=== PATIENT | female | born 1935 | race Caucasian/White ===

== ENCOUNTER 2021-05-23 11:46 | Emergency (ER) | payer OTHER ==
[2021-05-23] MEDS ORDERED: Sodium Chloride 0.9% 10 ML Syringe FLUSH PRN (12:25)
--- NOTE | 2021-05-23 12:32 | EDM.PDOC ---
ED HPI GENERAL MEDICAL PROBLEM - General Chief Complaint: Back Pain or Injury Stated Complaint: BACK PAIN AND ELEVATED LABS Time Seen by Provider: 05/23/21 12:11 Source of Information: Reports: RN ([facility] nurse at the bedside; patient does have a significant history of dementia) History Limitations: Reports: No Limitations - History of Present Illness INITIAL COMMENTS - FREE TEXT/NARRATIVE: 85-year-old female brought in by [facility] nurse as directed to be sent here by [facility] physician. Patient does have a history of chronic low back pain and this is being managed by her physician. As she has had x-rays and scans and is being trialed on different oral pain medications. Patient did have lab work completed yesterday and it did show an elevated lipase, C-reactive protein level and a ESR. Patient also was started on Macrobid for UTI yesterday. Patient really does not have any complaints and is not really verbal due to advanced dementia however she does grown slightly when changing positions from lying to sitting to standing. Paced physician is recommending the patient have a CT of the abdomen and pelvis to rule out pancreatitis. Treatments GEOSPATIAL PROGRAM MANAGEMENT OFFICER: Reports: Other (see below) Other Treatments GEOSPATIAL PROGRAM MANAGEMENT OFFICER: tramadol Lower Back Pain Score (Numeric/FACES): 8 - Related Data Allergies Allergy/AdvReac Type Severity Reaction Status Date / Time Tetanus Vaccines and Toxoid Allergy Severe Swelling Verified 05/23/21 13:16 atorvastatin [From Lipitor] Allergy Other Verified 05/23/21 13:16 fluvastatin Allergy Other Verified 05/23/21 13:16 lisinopril Allergy Other Verified 05/23/21 13:16 rosuvastatin Allergy Other Verified 05/23/21 13:16 valdecoxib [From Bextra] Allergy Other Verified 05/23/21 13:16 Social & Family History - Tobacco Use Tobacco Use Status *Q: Never Tobacco User Second Hand Smoke Exposure: No - Caffeine Use Caffeine Use: Reports: Coffee - Recreational Drug Use Recreational Drug Use: No ED ROS GENERAL - Review of Systems Review Of Systems: Comprehensive ROS is negative, except as noted in HPI. ED EXAM, GI/ABD - Physical Exam Exam: See Below Exam Limited By: No Limitations General Appearance: Alert, WD/WN, No Apparent Distress Ears: Normal External Exam, Hearing Grossly Normal Nose: Normal Inspection Throat/Mouth: Normal Inspection, Normal Lips, Normal Voice, No Airway Compromise Head: Atraumatic Neck: Normal Inspection, Supple, Non-Tender, Full Range of Motion Respiratory/Chest: No Respiratory Distress, Lungs Clear, Normal Breath Sounds, No Accessory Muscle Use, Chest Non-Tender Cardiovascular: Normal Peripheral Pulses, Regular Rate, Rhythm, No Edema, No Murmur GI/Abdominal Exam: Normal Bowel Sounds, Soft, No Distention, Tender (Left lower quadrant). No: Non-Tender (Female) Exam: Deferred Rectal (Female) Exam: Deferred Back Exam: Normal Inspection, Full Range of Motion. No: Paraspinal Tenderness, Vertebral Tenderness Extremities: Normal Inspection, Normal Range of Motion, Non-Tender, No Pedal Edema, Normal Capillary Refill Neurological: Alert. No: Oriented (Unable to assess orientation as patient is nonverbal and staff that accompanies the patient states that she does have fairly advanced dementia.) Psychiatric: Normal Affect, Normal Mood Skin Exam: Warm, Dry, Intact, Normal Color, No Rash Lymphatic: No Adenopathy Course - Vital Signs Text/Narrative:: As stated above, patient here with [facility] staff to be further evaluated for elevated lipase, CRP and ESR. Physician is concerned that she may have pancreatitis. Patient is really nonverbal during my assessment and assessment is essentially unremarkable. She is hemodynamically stable. Abdomen was assessed and she does have some groaning noted when palpation of the left lower quadrant. Back was assessed and she does have some tenderness noted to the right buttock area with palpation. I was not able to elicit any painful response on spinal or paraspinal palpation or assessment. Will obtain labs to include a CBC, CMP, magnesium level, C-reactive protein, lipase and amylase. Once I have those labs back we will likely order a CT of the abdomen pelvis. - Orders/Labs/Meds Orders: Active Orders 24 hr Category Date Time Status Abdomen Pelvis w Cont [CT] Stat Exams 05/23/21 13:51 Taken Sodium Chloride 0.9% [Saline Flush] Med 05/23/21 12:25 Active 10 ml FLUSH ASDIRECTED PRN Saline Lock Insert [OM.PC] Stat Oth 05/23/21 12:25 Ordered Medication Orders Sodium Chloride (Sodium Chloride 0.9% 10 Ml Syringe) 10 ml FLUSH ASDIRECTED PRN PRN Reason: Keep Vein Open Last Admin: 05/23/21 13:10 Dose: 10 ml Documented by: [id number] Labs: Laboratory Tests 05/23/21 05/23/21 05/23/21 Range/Units 12:56 12:56 12:56 WBC 7.87 (3.98-10.04) K/mm3 RBC 4.14 (3.98-5.22) M/mm3 Hgb 10.9 L (11.2-15.7) gm/dl Hct 35.5 (34.1-44.9) % MCV 85.7 (79.4-94.8) fl MCH 26.3 (25.6-32.2) pg MCHC 30.7 L (32.2-35.5) g/dl RDW Std Deviation 49.5 H (36.4-46.3) fL Plt Count 277 (182-369) K/mm3 MPV 11.0 (9.4-12.3) fl Neut % (Auto) 62.9 (34.0-71.1) % Lymph % (Auto) 19.6 (19.3-51.7) % Hoke % (Auto) 10.2 (4.7-12.5) % Eos % (Auto) 6.6 H (0.7-5.8) Baso % (Auto) 0.6 (0.1-1.2) % Neut # (Auto) 4.95 (1.56-6.13) K/mm3 Lymph # (Auto) 1.54 (1.18-3.74) K/mm3 Hoke # (Auto) 0.80 H (0.24-0.36) K/mm3 Eos # (Auto) 0.52 H (0.04-0.36) K/mm3 Baso # (Auto) 0.05 (0.01-0.08) K/mm3 Sodium 138 (136-145) mEq/L Potassium 3.8 (3.5-5.1) mEq/L Chloride 103 (98-107) mEq/L Carbon Dioxide 24 (21-32) mEq/L Anion Gap 14.8 (5-15) BUN 22 H (7-18) mg/dL Creatinine 1.1 H (0.55-1.02) mg/dL Est Cr Clr Drug Dosing 42.55 mL/min Estimated GFR (MDRD) 47 (>60) mL/min BUN/Creatinine Ratio 20.0 H (14-18) Glucose 155 H (70-99) mg/dL Calcium 9.4 (8.5-10.1) mg/dL Magnesium 1.7 L (1.8-2.4) mg/dL Total Bilirubin 0.9 (0.2-1.0) mg/dL AST 17 (15-37) U/L ALT 22 (14-59) U/L Alkaline Phosphatase 150 H (46-116) U/L C-Reactive Protein 14.0 H* (<1.0) mg/dL Total Protein 6.9 (6.4-8.2) g/dl Albumin 3.3 L (3.4-5.0) g/dl Globulin 3.6 gm/dL Albumin/Globulin Ratio 0.9 L (1-2) Amylase 40 (25-115) U/L Lipase 268 (73-393) U/L Meds: Medications Generic Name Dose Route Start Last Admin Trade Name Freq PRN Reason Stop Dose Admin Sodium Chloride 10 ml 05/23/21 12:25 05/23/21 13:10 Sodium Chloride 0.9% 10 Ml Syringe FLUSH 10 ml ASDIRECTED PRN Administration Keep Vein Open - Re-Assessments/Exams Free Text/Narrative Re-Assessment/Exam: 05/23/21 13:53 Hematology reveals a WBC of 7.87, hemoglobin 10.9, hematocrit 35.5, platelet count 277,000 Chemistry reveals a sodium of 138, potassium 3.8, chloride 103, carbon dioxide 24, anion gap 14.8, BUN 22, creatinine 1.1, glucose 155, magnesium 1.7, total bilirubin 0.9, AST 17, ALT 22, alk phos 150, C-reactive protein 14.0, amylase 40, lipase [address] of the abdomen and pelvis to further evaluate left lower q uadrant abdominal pain with associated elevation of C-reactive protein. 05/23/21 16:[address] of the abdomen and pelvis: Lungs show groundglass opacities at the left lung base appear to be platelike suggestive of atelectasis. Clinical correlation to exclude acute multifocal pneumonitis is suggested. Liver examination of the liver demonstrates a lobular surface contour, and enlargement of the left and caudate lobes, findings consistent with cirrhosis. Multiple simple appearing hepatic cysts demonstrate measuring up to 1.7 cm in the right lobe adjacent to the gallbladder. Gallbladder and bile ducts: There are gallbladder is present. No evidence of cholecystitis demonstrated. Pancreas: Mild peripancreatic fluid extending into the left anterior pararenal space. Clinical correlation to exclude mild pancreatitis is suggested. Spleen: Normal. No splenomegaly. Adrenal glands: Normal. No mass. Kidneys and ureters: Normal. No hydronephrosis. Stomach and bowel: Mild diverticulosis is present in the left colon. No diverticulitis. Appendix: No evidence of appendicitis. Intraperitoneal space: Unremarkable. No free air. No significant fluid c ollection. Vasculature: The aorto iliac vessels demonstrate mild atherosclerotic calcification. Lymph nodes: Right pericardiac lymph node measures 9 mm. Urinary bladder: Unremarkable as visualized. Reproductive: Unremarkable as visualized Bones/joints: The spine demonstrates moderate degenerative changes. Severe central spinal stenosis L1-L2, L2-L3, L3-L4 with moderate central spinal steno sis L4-L5. Bilateral facet joint arthroplasty L5-S1. Soft tissues: There is a small umbilical hernia. There is no evidence of incarceration. Impression: 1. Groundglass opacities at the left lung base appear to be platelike suggestive of atelectasis. Clinical correlation to exclude acute multifocal pneumonitis suggested. 2. Examination of the liver demonstrates a lobular surface contour, and enlargement of the left and caudate lobes, findings consistent with cirrhosis. Multiple simple appearing hepatic cyst demonstrated measuring up to 1.7 cm in the right lobe adjacent to the gallbladder. 3. There are gallstones present. No evidence of cholecystitis demonstrated. 4. Mild peripancreatic fluid extending into the left anterior pararenal space. Clinical correlation to exclude mild pancreatitis is suggested. 5. Mild diverticulosis is present in the left colon. No diverticulitis. Departure - Departure Time of Disposition: 17:36 Disposition: Home, Self-Care 01 Condition: Good Clinical Impression: Abdominal pain Qualifiers: Abdominal location: left lower quadrant Qualified Code(s): R10.32 - Left lower quadrant pain - Discharge Information Instructions: Abdominal Pain, Adult, [id number] Referrals: Andres Chamorro DO [Primary Care Provider] - Forms: ED Department Discharge Additional Instructions: You were seen in the emergency department today for follow-up regarding labs that were completed yesterday by her primary care provider. Labs were completed which were essentially unremarkable however C-reactive protein, which is an inflammatory marker was elevated. Liver enzymes were completely normal. CT scan of the abdomen was completed which did show possibly mild pancreatitis however again lipase and amylase were not elevated. She may have had pancreatitis which is now resolving. Recommend clear liquids for the next 48 hours and then reevaluate her symptoms. May advance to a bland diet however if she develops abdominal pain go back to clear liquids. She will need to follow- up with her primary care provider early next week for further evaluation. - My Orders Last 24 Hours: My Active Orders 05/23/21 12:25 Sodium Chloride 0.9% [Saline Flush] 10 ml FLUSH ASDIRECTED PRN Saline Lock Insert [OM.PC] Stat 05/23/21 13:51 Abdomen Pelvis w Cont [CT] Stat - Assessment/Plan Last 24 Hours: My Active Orders 05/23/21 12:25 Sodium Chloride 0.9% [Saline Flush] 10 ml FLUSH ASDIRECTED PRN Saline Lock Insert [OM.PC] Stat 05/23/21 13:51 Abdomen Pelvis w Cont [CT] Stat
--- NOTE | 2021-05-24 06:32 | CT ---
CT abdomen and pelvis Technique: Multiple axial sections were obtained from above the dome of the diaphragm inferiorly to the pubic symphysis. Intravenous and oral contrast were utilized. Delayed images were also obtained through the abdomen and pelvis. Reconstructed coronal and sagittal images were obtained. Comparison: No prior abdominal/pelvic CT study is available. Findings: Visualized lung bases show slight atelectasis within the left base. There is some artifact noted on the axial views suggesting groundglass appearance which is not appreciated on the reconstructed coronal images. Scattered cysts are seen within the liver involving the right lobe. Largest cyst measures 2.0 cm in size. Liver shows very minimal nodularity. Findings suggest but are not confirmatory for possibility of cirrhosis. Please correlate. Spleen size is normal. Adrenal glands show no nodule. Haziness is seen next to the pancreatic tail which may be chronic versus change from mild pancreatitis. Several calcified gallstones are seen within the gallbladder. Kidneys show contrast enhancement. Small scar is seen within the left kidney. Delayed images show contrast within the collecting systems and within the ureters. Contrast is also noted within the bladder. Abdominal aorta shows atherosclerotic calcification. No aneurysm is seen. No retroperitoneal adenopathy or mesenteric abnormalities are seen. Fat-containing umbilical hernia is noted. Appendix is not definitely seen. Diverticuli are seen within the sigmoid colon without findings of diverticulitis. Bone window settings were reviewed which show diffuse degenerative change within the spine. Slight compression deformity is seen within T12. Mild osteopenia is noted and please exclude any symptoms of infection or acute injury. Impression: 1. Compression deformity and lucency within the T12 vertebral body. Please exclude any acute symptoms to this area as bone marrow infection or acute change cannot be excluded. Please correlate if MRI with contrast is needed to further evaluate. 2. Minimal inflammatory change off the tail of the pancreas which may be chronic or represent minimal pancreatitis. 3. Diverticulosis within the sigmoid colon without diverticulitis. 4. Several calcified gallstones. 5. Small cyst within the liver with changes suggesting, but not confirming, early cirrhosis. Diagnostic code #3 I minimally disagree with preliminary report from [facility] (please see comment about T12), finalized on 05/23/21, 5:48 PM CDT, code 2
== END 2021-05-23 17:45 | disposition home or self-care (01) ==
LOC: JD.ED 11:46
DX: R10.32 Left lower quadrant pain (principal); Z88.7 Allergy status to serum and vaccine; Z88.8 Allergy status to other drugs, medicaments and biological substances
CPT/HCPCS: 36415; 74177; 74177-26; 80053; 82150; 83690; 83735; 85025; 86140; 99284; 99284-25

== ENCOUNTER 2021-06-04 16:45 | Emergency (ER) | payer OTHER, MEDICARE ==
--- NOTE | 2021-06-04 17:40 | EDM.PDOC ---
<Tawnya Hancock H - Last Filed: 06/04/21 21:41> ED HPI GENERAL MEDICAL PROBLEM - General Chief Complaint: Lower Extremity Injury/Pain Stated Complaint: [facility] Time Seen by Provider: 06/04/21 17:15 - Related Data Allergies Allergy/AdvReac Type Severity Reaction Status Date / Time Tetanus Vaccines and Toxoid Allergy Severe Swelling Verified 06/04/21 17:18 atorvastatin [From Lipitor] Allergy Other Verified 06/04/21 17:18 fluvastatin Allergy Other Verified 06/04/21 17:18 lisinopril Allergy Other Verified 06/04/21 17:18 rosuvastatin Allergy Other Verified 06/04/21 17:18 valdecoxib [From Bextra] Allergy Other Verified 06/04/21 17:18 Home Meds: Home Meds Acetaminophen 650 mg PO DAILY 06/04/21 [History] Aspirin [Aspirin EC] 81 mg PO DAILY 06/04/21 [History] Calcium Carbonate [Tums Extra Strength] 750 mg PO DAILY PRN 06/04/21 [History] Carbamide Peroxide [Debrox 6.5% Otic Soln] 5 drop EARBOTH BID 06/04/21 [History] Donepezil HCl 10 mg PO DAILY 06/04/21 [History] FLUoxetine [PROzac] 80 mg PO DAILY 06/04/21 [History] Levothyroxine 25 mcg PO WITHBREAKFAST 06/04/21 [History] Levothyroxine [Synthroid] 50 mcg PO ACBREAKFAST 06/04/21 [History] Lidocaine 4% [Aspercreme 4%] 1 each TP DAILY 06/04/21 [History] Losartan Potassium 25 mg PO DAILY 06/04/21 [History] Multivitamin with Minerals [Multiple Vitamin] 1 tab PO DAILY 06/04/21 [History] Naproxen 250 mg PO BID 06/04/21 [History] Omeprazole 20 mg PO DAILY 06/04/21 [History] Oxybutynin Chloride [Oxybutynin Chloride ER] 10 mg PO DAILY 06/04/21 [History] metFORMIN [Glucophage] 500 mg PO BIDMEALS 06/04/21 [History] Course - Vital Signs Text/Narrative:: Patient has been accepted for transfer by [facility] in [place]. Dr. Palacios is excepting physician. Patient will go by fixed wing. Her O2 sats do drop on room air but are in the mid to high 90s on 2 L nasal cannula. Patient's vital signs otherwise are stable. Departure - Departure Time of Disposition: 21:42 Disposition: DC/Tfer to Acute Hospital 02 Clinical Impression: Fracture of neck of femur, hip Compression fracture of T12 vertebra Qualifiers: Encounter type: initial encounter Qualified Code(s): S22.080A - Wedge compression fracture of T11-T12 vertebra, initial encounter for closed fracture Dementia Qualifiers: Dementia type: Alzheimer's Alzheimer's disease onset: early-onset Dementia behavioral disturbance: without behavioral disturbance Qualified Code(s): G30.0 - Alzheimer's disease with early onset; F02.80 - Dementia in other diseases classified elsewhere without behavioral disturbance - Discharge Information Referrals: Andres Chamorro DO [Primary Care Provider] - Forms: ED Department Discharge Additional Instructions: Patient is being transferred to [facility] in [facility] [place]. She will have surgery on her hip tomorrow. <Rusty Luevano - Last Filed: 06/05/21 07:00> ED HPI GENERAL MEDICAL PROBLEM - General Source of Information: Reports: Patient, Family History Limitations: Reports: No Limitations - History of Present Illness INITIAL COMMENTS - FREE TEXT/NARRATIVE: 85-year-old female who lives alone in her own apartment and is currently in the [facility] program presents to the ED per [facility]. She is not sure why she fell in her kitchen earlier this p.m. but she found herself lying on the floor. Her neighbor heard her fall and was able to summon help and paramedics did attend her in her apartment as well as her PACE nurse. They aided her up to a chair and she thought she was going to be okay. However an hour later she tried to get up and was unable to put any weight on her left leg due to severe hip pain. She is also complaining of pain in her mid and lower spine. She denies hitting her head or losing consciousness. She has been having increased back pain recently and not getting adequate fluids as it is too painful to get up and move around. She had CT scan of her thoracic spine done recently which apparently did not reveal any compression fractures. It was suggestive that she had a pancreatitis although she never had an elevated amylase or lipase. This apparently subsequently has resolved but her appetite has remained poor. It is felt that this may be contributing to her weakness and propensity to falling. Paramedics apparently did give her fentanyl 25 mcg in route to the hospital. Patient had no recollection of receiving any pain medication. History suggest that she does have mild dementia. Onset: Today, Sudden Onset Date: 06/04/21 Onset Time: 15:45 (Best guess.) Duration: Hour(s):, Getting Worse (Left hip pain and low back pain are getting worse since initial fall. Patient unable to weight-bear at all) Location: Reports: Back (Thoracolumbar spine lumbar spine), Pelvis (Left hip and pelvis), Lower Extremity, Left (Unable to put any weight on her left leg) Quality: Reports: Ache, Throbbing Severity: Severe (With attempt to weight-bear.) Improves with: Reports: None Worsens with: Reports: Movement (Movement of the left leg causes pain in her left) Context: Reports: Trauma (Fell in her kitchen of her apartment. It is unclear why or how she fell as she does not believe she tripped over anything. Sounds like she may have had a syncopal event.). Denies: Activity ( hip.), Exercise, Lifting, Sick Contact Associated Symptoms: Reports: Confusion, Loss of Appetite, Malaise, Weakness (Neurolysed weakness). 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: Acetaminophen, Other (see below) (Paramedics gave her fentanyl 25 mcg IV in route to the hospital) Left Hip Pain Score (Numeric/FACES): 8 Past Medical History HEENT History: Reports: Other (See Below) Other HEENT History: Barretts esophagus without dysplasia Cardiovascular History: Reports: Heart Murmur, High Cholesterol, Other (See Below) Other Cardiovascular History: Benign and innocent cardiac murmur Gastrointestinal History: Reports: Colon Polyp Musculoskeletal History: Reports: Back Pain, Chronic, Osteoarthritis, Other (See Below) Other Musculoskeletal History: spondylosis, restless leg syndrome Neurological History: Reports: Alzheimers Disease, Neuropathy, Peripheral Psychiatric History: Reports: Dementia, Depression Endocrine/Metabolic History: Reports: Diabetes, Type II, Obesity/BMI 30+ Hematologic History: Reports: Iron Deficiency Social & Family History - Tobacco Use Tobacco Use Status *Q: Never Tobacco User - Caffeine Use Caffeine Use: Reports: Tea - Recreational Drug Use Recreational Drug Use: No - Living Situation & Occupation Living situation: Reports: , Alone (Patient lives alone in her own apartment and is currently in the PACE program which is designed to have a nurse visit her frequently throughout the day and keep her in her own home.) Occupation: Retired Review of Systems - Review of Systems Review Of Systems: See Below (History from the patient is not very reliable likely due to underlying dementia. Most of her history was obtained from her granddaughter) Constitutional: Reports: Weakness Eyes: Reports: Decreased Acuity, Glasses (Apparently has macular degeneration) Mouth/Throat: Reports: Loose Teeth Respiratory: Reports: Shortness of Breath, Other (Dyspnea on minimal exertion) Cardiovascular: Reports: Lightheadedness. Denies: Chest Pain, Irregular Heart Rate GI/Abdominal: Reports: Other (Apparently often incontinent of stool and bowel.) Genitourinary: Reports: Other (Urinary frequency with urinary incontinence) Musculoskeletal: Reports: Neck Pain, Shoulder Pain, Back Pain ( and lower back), Joint Pain (Knees hips) Skin: Reports: Bruising (Bruises fairly easily.) Neurological: Reports: Confusion, Dizziness, Difficulty Walking (Chronically does have a walker.), Weakness, Gait Disturbance. Denies: Headache, Numbness, Syncope, Tingling, Change in Speech Psychiatric: Reports: Confusion (Apparently has been diagnosed with early dementia.). Denies: Mood Lability, Anxiety ED EXAM, GENERAL - Physical Exam Exam: See Below Exam Limited By: Altered Mental Status (History is somewhat unreliable according from to the patient due to underlying dementia. She appears to have loss of short-term memory) General Appearance: Alert, Mild Distress, Other (Large lady with a BMI of 41. Temperature was 36.7. Heart rate was 80 and sinus respiratory is 18 with O2 sats of 90% on room air after receiving fentanyl 25 mcg IV. Mildly pallid in appearance) Eye Exam: Bilateral Eye: Normal Inspection (Mild blepharal pallor with no scleral icterus), PERRL Throat/Mouth: Normal Inspection, Normal Lips, Normal Oropharynx. No: Normal Teeth Head: Atraumatic, Normocephalic, Other (No outward signs of any head or facial trauma.) Neck: Normal Inspection, Supple, Non-Tender, Full Range of Motion. No: Lymphadenopathy (L), Lymphadenopathy (R) Respiratory/Chest: No Respiratory Distress, Lungs Clear, Normal Breath Sounds, No Accessory Muscle Use, Decreased Breath Sounds Cardiovascular: Regular Rate, Rhythm, No Edema, No Gallop, No Murmur, No Rub. No: Normal Peripheral Pulses (Breath sounds are mildly diminished to the lower 20% of the lungs posteriorly without any adventitial sounds) Peripheral Pulses: 1+: Posterior Tibial (L), Posterior Tibial (R), Dorsalis Pedis (L), Dorsalis Pedis (R), 2+: Carotid (L), Carotid (R) GI/Abdominal: Normal Bowel Sounds, Soft, Non-Tender, No Organomegaly, No Mass, Pelvis Stable, Other (Morbidly obese. No palpable abdominal tenderness. Abdominal girth limits ability to palpate solid organs) Back Exam: Other (She was not able to sit up or roll for me to examine her back. Examination was done by palpation under her and she had marked tenderness at the thoracolumbar junction and at the lower lumbar spine and left posterior lateral hip and pelvis area. No ecchymoses were identified left pelvis) Extremities: Limited Range of Motion (On examination of the left lower extremity she is unable to lift it off the gurney at all. Left foot is externally rotated and leg is perhaps minimally shortened. Any attempt to lift the left leg off the gurney caused exquisite pain in her hip.), Other (She could lift both arms above her head. She has no obvious injuries to her clavicles acromioclavicular joints, humerus elbows or wrists or hands. She could lift her right leg off the gurney has marked loss of external rotation right hip). No: Increased Warmth Neurological: Alert, Oriented, CN II-XII Intact, Sensory/Motor Deficit (She is unable to lift her left leg off the gurney at all due to pain). No: Normal Gait (Not able to assess) Psychiatric: Normal Mood Skin Exam: Warm, Dry, Intact, Pallor (Mild pallor) #1 Interpretation EKG Date: 06/04/21 Time: 18:06 Rhythm: NSR Rate (Beats/Min): 80 [place]: LAD-Left [place] Deviation (Minimal left axis deviation -6 degrees) P-Wave: Enlarged (Biatrial hypertrophy) QRS: Other (Q waves are present in leads III and aVF consider old inferior wall myocardial infarction. Early R wave transition consider right ventricular appear to be versus septal hypertrophy. Decreased voltage limb leads pattern) ST-T: Other (Nonspecific T wave flattening in leads I and aVL) QT: Prolonged (Mildly prolonged) EKG Interpretation Comments: Abnormal ECG Course - Vital Signs Last Recorded V/S: Last Vital Signs Temp 36.7 C 06/04/21 16:59 Pulse 73 06/04/21 21:00 Resp 18 06/04/21 21:00 BP 129/67 06/04/21 21:00 Pulse Ox 91 L 06/04/21 21:00 - Orders/Labs/Meds Orders: Active Orders 24 hr Category Date Time Status Urinary Catheter Insertion [Insert Urinary Catheter] [ Care 06/04/21 18:20 Ordered OM.PC] Stat Labs: Laboratory Tests 06/04/21 06/04/21 06/04/21 Range/Units 17:51 17:51 17:51 WBC 9.54 (3.98-10.04) K/mm3 RBC 4.17 (3.98-5.22) M/mm3 Hgb 11.1 L (11.2-15.7) gm/dl Hct 35.8 (34.1-44.9) % MCV 85.9 (79.4-94.8) fl MCH 26.6 (25.6-32.2) pg MCHC 31.0 L (32.2-35.5) g/dl RDW Std Deviation 51.0 H (36.4-46.3) fL Plt Count 257 (182-369) K/mm3 MPV 10.8 (9.4-12.3) fl Neut % (Auto) 78.5 H (34.0-71.1) % Lymph % (Auto) 12.9 L (19.3-51.7) % [place] % (Auto) 6.8 (4.7-12.5) % Eos % (Auto) 1.4 (0.7-5.8) Baso % (Auto) 0.2 (0.1-1.2) % Neut # (Auto) 7.49 H (1.56-6.13) K/mm3 Lymph # (Auto) 1.23 (1.18-3.74) K/mm3 [place] # (Auto) 0.65 H (0.24-0.36) K/mm3 Eos # (Auto) 0.13 (0.04-0.36) K/mm3 Baso # (Auto) 0.02 (0.01-0.08) K/mm3 ESR (0-20) mm/hr PT 11.2 (9.7-12.0) SECONDS INR 1.01 APTT 25.9 (21.7-31.4) SECONDS Sodium 137 (136-145) mEq/L Potassium 4.0 (3.5-5.1) mEq/L Chloride 104 (98-107) mEq/L Carbon Dioxide 24 (21-32) mEq/L Anion Gap 13.0 (5-15) BUN 15 (7-18) mg/dL Creatinine 0.9 (0.55-1.02) mg/dL Est Cr Clr Drug Dosing 48.63 mL/min Estimated GFR (MDRD) 60 (>60) mL/min BUN/Creatinine Ratio 16.7 (14-18) Glucose 127 H (70-99) mg/dL Calcium 9.5 (8.5-10.1) mg/dL Magnesium 1.6 L (1.8-2.4) mg/dL Total Bilirubin 0.7 (0.2-1.0) mg/dL AST 27 (15-37) U/L ALT 25 (14-59) U/L Alkaline Phosphatase 156 H (46-116) U/L Troponin I < 0.017 (0.00-0.056) ng/mL C-Reactive Protein 1.4 H* (<1.0) mg/dL NT-Pro-B Natriuret Pep (0-450) pg/mL Total Protein 6.9 (6.4-8.2) g/dl Albumin 3.3 L (3.4-5.0) g/dl Globulin 3.6 gm/dL Albumin/Globulin Ratio 0.9 L (1-2) SARS-CoV-2 RNA (PRABHA) (NEGATIVE) 06/04/21 06/04/21 06/04/21 Range/Units 17:51 17:51 17:55 WBC (3.98-10.04) K/mm3 RBC (3.98-5.22) M/mm3 Hgb (11.2-15.7) gm/dl Hct (34.1-44.9) % MCV (79.4-94.8) fl MCH (25.6-32.2) pg MCHC (32.2-35.5) g/dl RDW Std Deviation (36.4-46.3) fL Plt Count (182-369) K/mm3 MPV (9.4-12.3) fl Neut % (Auto) (34.0-71.1) % Lymph % (Auto) (19.3-51.7) % [place] % (Auto) (4.7-12.5) % Eos % (Auto) (0.7-5.8) Baso % (Auto) (0.1-1.2) % Neut # (Auto) (1.56-6.13) K/mm3 Lymph # (Auto) (1.18-3.74) K/mm3 [place] # (Auto) (0.24-0.36) K/mm3 Eos # (Auto) (0.04-0.36) K/mm3 Baso # (Auto) (0.01-0.08) K/mm3 ESR 23 H (0-20) mm/hr PT (9.7-12.0) SECONDS INR APTT (21.7-31.4) SECONDS Sodium (136-145) mEq/L Potassium (3.5-5.1) mEq/L Chloride (98-107) mEq/L Carbon Dioxide (21-32) mEq/L Anion Gap (5-15) BUN (7-18) mg/dL Creatinine (0.55-1.02) mg/dL Est Cr Clr Drug Dosing mL/min Estimated GFR (MDRD) (>60) mL/min BUN/Creatinine Ratio (14-18) Glucose (70-99) mg/dL Calcium (8.5-10.1) mg/dL Magnesium (1.8-2.4) mg/dL Total Bilirubin (0.2-1.0) mg/dL AST (15-37) U/L ALT (14-59) U/L Alkaline Phosphatase (46-116) U/L Troponin I (0.00-0.056) ng/mL C-Reactive Protein (<1.0) mg/dL NT-Pro-B Natriuret Pep 48 (0-450) pg/mL Total Protein (6.4-8.2) g/dl Albumin (3.4-5.0) g/dl Globulin gm/dL Albumin/Globulin Ratio (1-2) SARS-CoV-2 RNA (PRABHA) Negative (NEGATIVE) Meds: Medications Discontinued Medications Generic Name Dose Route Start Last Admin Trade Name Chris PRN Reason Stop Dose Admin Hydromorphone HCl 0.5 mg 06/04/21 17:52 06/04/21 18:03 Hydromorphone 0.5 Mg/0.5 Ml Syringe IVPUSH 06/04/21 17:53 0.5 mg ONETIME ONE Administration Dextrose/Lactated Ringer's 1,000 mls @ 125 mls/hr 06/04/21 17:45 06/04/21 17:57 Dextrose 5%-Lactated Ringers IV 125 mls/hr ASDIRECTED CONCHA Administration Metoclopramide HCl 7.5 mg 06/04/21 17:53 06/04/21 18:03 Metoclopramide 10 Mg/2 Ml Sdv IVPUSH 06/04/21 17:54 7.5 mg ONETIME ONE Administration - Radiology Interpretation Free Text/Narrative:: 85-year-old female who lives alone in her own apartment and is currently in the PACE program presents to the ED per [facility]. She had fallen in her own home at approximately 1545 hrs. today and and this was heard by a neighbor who then went to check on her and then summoned help. The paramedics did attend her at her own suite and aided her up to a chair.The PACE nurse made a decision that she did not need transfer to the hospital for evaluation at that time. However after another hour or 2 when she tried to get up she was unable to put any weight on her left leg at all. She was thus transferred to the hospital per ambulance for evaluation. On my initial assessment her left leg is slightly shortened with external rotation and she is unable to lift it off the gurney. She also has pain at her thoracolumbar spine and lumbar spine on palpation because I was not able to roll her or sit her up for examination. Plan routine labs were ordered included COVID-19 screen is I am confident she broke her left hip. She will have CT scans of her thoracic and lumbar spine performed. X-rays of her pelvis and left femur are to be done. She was given Dilaudid 0.5 mg IV to help facilitate the studies. She was started on oxygen at 3 L/min by nasal cannula due to O2 sat of 89% after receiving fentanyl per paramedics in route to the hospital. - Re-Assessments/Exams Free Text/Narrative Re-Assessment/Exam: 06/04/21 19:38 White count is 9.54. Auto differential shows 78.5% neutrophils. Hemoglobin is still slightly low at 11.1 with hematocrit of 35.8. Platelet count is 257,000. PT is 11.2 with an INR of 1.01. PTT is 25.9. Sodium is 137 with potassium of 4.0. Chloride 104 the bicarb of 24. Anion gap is 13.0. BUN is 15 with a creatinine of 0.9 and a GFR greater than 60. Glucose is 127. Calcium was 9.5 magnesium slightly low at 1.6. Liver function normal other than alkaline phosphatase slightly elevated at 156. Troponin I was less than 0.017 C-reactive protein 1.4. BNP is 48. Total protein of 6.9 with an albumin fraction slightly low at 3.3. COVID-19 screen is negative. 06/04/21 19:44 x-rays of the pelvis reveal no fractures within the pelvis itself. There is evidence of degenerative arthritic change in both sacroiliac joints. She does have a fracture through the left femoral neck( subcapital). This is confirmed on x-rays of the femur . Associated degenerative changes at the patellofemoral junction and within the true knee joint. CT of the thoracolumbar spine and lumbar spine has been completed. She has a fracture deformity within the T12 vertebra and there appears to be air within the discs from T12-L5 which I have not seen in the past. I have some concerns that she may have alternative pathology in T12 vertebra such as multiple myeloma. At any rate she is going to require surgical fixation of her left hip. Copies of the x-ray reports from radiology are not yet available. Care will be transferred to since it is change of shift. We will have to start looking for placement for this lady for definitive orthopedic surgical management. Currently there is a Covid epidemic and beds in the entire [facility] are sparse to say the least. Our hospital is on diversion. Departure - Discharge Information *PRESCRIPTION DRUG MONITORING PROGRAM REVIEWED*: Not Applicable *COPY OF PRESCRIPTION DRUG MONITORING REPORT IN PATIENT ARIELLE: Not Applicable Sepsis Event Note (ED) - Evaluation Sepsis Screening Result: No Definite Risk - Focused Exam Vital Signs: Vital Signs Pulse Resp BP Pulse Ox 06/04/21 21:00 73 18 129/67 91 L - My Orders Last 24 Hours: My Active Orders 06/04/21 18:20 Urinary Catheter Insertion [Insert Urinary Catheter] [OM.PC] Stat - Assessment/Plan Last 24 Hours: My Active Orders 06/04/21 18:20 Urinary Catheter Insertion [Insert Urinary Catheter] [OM.PC] Stat
[2021-06-04] MEDS ORDERED: Dextrose 5%-Lactated Ringers 1,000 ML IV SCH (17:45)
[2021-06-04] MEDS ORDERED: HYDROmorphone 0.5 MG/0.5 ML Syringe IVPUSH ONE (17:52)
[2021-06-04] MEDS ORDERED: Metoclopramide 10 MG/2 ML SDV IVPUSH ONE (17:53)
--- NOTE | 2021-06-04 19:56 | CR ---
Pelvis: AP view of the pelvis was obtained. Comparison: No prior pelvis study is available. Angulated subcapital fracture is noted within the left hip. Severe joint space narrowing is noted within the right hip with subchondral cystic change. Disc space narrowing is seen within the lower lumbar spine. Osteopenia is present. Impression: 1. Angulated subcapital fracture within the left hip. 2. Other degenerative change as noted above. 3. Osteopenia. Diagnostic code #3
--- NOTE | 2021-06-04 19:56 | CR ---
Left femur: AP and lateral views of the left femur were obtained. Comparison: No prior femur study is available. Subcapital fracture is identified which shows some angulation. Mild joint space narrowing is seen within the knee. Bony structures are osteopenic. No other acute abnormality is appreciated. Impression: 1. Mildly angulated subcapital fracture. 2. Mild joint space narrowing within the knee and osteopenia. Diagnostic code #3
--- NOTE | 2021-06-04 20:13 | CT ---
CT thoracic spine Technique: Multiple axial sections through the thoracic spine were obtained. Reconstructed coronal and sagittal images were also obtained. Comparison: No prior thoracic spine study is available. Findings: Scattered disc space narrowing s is een throughout the thoracic spine with anterior osteophytes. Posterior osteophytes are noted at T2-3 and T3-4 which indent the anterior thecal sac. T10-11 shows posterolateral osteophytes off the apophyseal joints which is worse on the right side. These slightly indent the thecal sac. There is a fracture being seen within the vertebral body of T12. There is mild loss of height being seen. There is no fracture extension into the posterior elements being seen. No retrolisthesis fragments are seen. Vacuum phenomena is seen within the T11-12 disc and the T12-L1 disc. Anterior plate and screws are noted at the C6-7 disc. Impression: 1. Compression fracture of the vertebral body of T12. No extension into the posterior elements are seen. No displaced fragments are seen. Slight loss of vertebral body height is seen. 2. Degenerative change as noted above. 3. Prior surgery at C6-7. Diagnostic code #3
--- NOTE | 2021-06-04 20:16 | CT ---
CT lumbar spine Technique: Multiple axial sections through the lumbar spine were obtained. Reconstructed coronal and sagittal images were obtained. Comparison: No prior lumbar spine imaging is available. Findings: Severe disc space narrowing is noted at L1-2 through L5-S1. Diffuse posterior osteophytes are seen at all these levels as well as anterior osteophytes. Vacuum disc phenomena is also noted throughout all the discs. Posterior osteophytes cause multiple levels of mild central canal stenosis. There is also previous surgery on the right side at L5-S1. Diffuse vascular calcification is noted within the abdominal aorta. No acute fracture or abnormal subluxation is seen. Impression: 1. Degenerative change as noted above which cause scattered areas of central canal stenosis. 2. No acute fracture or abnormal subluxation is seen within the lumbar spine. Diagnostic code #2
== END 2021-06-04 22:00 ==
LOC: JD.ED 16:45
DX: S22.080A Wedge compression fracture of T11-T12 vertebra, initial encounter for closed fracture (principal); S72.092A Other fracture of head and neck of left femur, initial encounter for closed fracture; G30.0 Alzheimer's disease with early onset; F02.80 Dementia in other diseases classified elsewhere, unspecified severity, without behavioral disturbance, psychotic disturbance, mood disturbance, and anxiety; E11.42 Type 2 diabetes mellitus with diabetic polyneuropathy; E66.9 Obesity, unspecified; E78.00 Pure hypercholesterolemia, unspecified; Z88.7 Allergy status to serum and vaccine; Z88.8 Allergy status to other drugs, medicaments and biological substances; Z79.82 Long term (current) use of aspirin; Z79.899 Other long term (current) drug therapy; Z68.41 Body mass index [BMI] 40.0-44.9, adult; Z20.822 Contact with and (suspected) exposure to COVID-19; W18.39XA Other fall on same level, initial encounter; Y92.000 Kitchen of unspecified non-institutional (private) residence as the place of occurrence of the external cause
CPT/HCPCS: 36415; 51701; 72128; 72131; 72170; 73552; 80053; 83735; 83880; 84484; 85025; 85610; 85652; 85730; 86140; 87635; 93005; 96374; 96375; 99285; J1170; J2765; J7121; 93010; U0002